=== PATIENT | male | born 1980 | race Hispanic/Latino ===

== ENCOUNTER 2024-07-19 17:43 | Emergency (ER) | payer SELFPAY | END 2024-07-20 17:01 | disposition home or self-care (01) | LOC: ERS 17:43 | DX: S92.002A Unspecified fracture of left calcaneus, initial encounter for closed fracture (principal); S80.212A Abrasion, left knee, initial encounter; S80.812A Abrasion, left lower leg, initial encounter; Z75.8 Other problems related to medical facilities and other health care; W19.XXXA Unspecified fall, initial encounter ==